=== PATIENT | female | born 1935 | race Caucasian/White ===

== ENCOUNTER 2018-07-03 10:40 | Emergency (ER) | payer MEDICARE ==
[2018-07-03 11:45] LABS: #Eosinphils 0.1 thou/uL (0.0-0.7); #Lymphocytes 0.8 thou/uL (1.20-3.40); #Monocytes 0.6 thou/uL (0.11-0.59); #Neutrophils 3.6 thou/uL (1.40-6.50); %Basophils 0.5 % (0.0-1.0); %Eosinophils 1.5 % (0.0-10.0); %Lymphocytes 15.9 % (21.0-51.0); %Monocytes 11.6 % (0.0-10.0); %Neutrophils 70.5 % (42.0-75.0); Hemoglobin 14.6 g/dL (12.0-16.0); Mean Corpuscular Hemoglobin 30.2 pg (27.0-31.0); Mean Corpuscular Volume 88.8 fL (78.0-98.0); Mean Platelet Volume 7.8 fL (7.4-10.4); Platelet Count 244 thou/uL (130-400); RBC Distribution Width 12.9 % (11.5-14.5); Red Blood Cell (RBC) Count 4.85 mill/uL (4.20-5.40); White Blood Cell (WBC) Count 5.1 thou/uL (4.8-10.8)
--- NOTE | 2018-07-03 11:51 | CT ---
CT HEAD WITHOUT CONTRAST: Date: 07/03/18 COMPARISON: 11/19/15. HISTORY: Dementia and altered mental status. TECHNIQUE: Axial CT imaging at 5 mm intervals from vertex through skull base without contrast. FINDINGS: Imaged paranasal sinuses and mastoid air cells are well aerated. There is no displaced calvarial frac ture. There is atherosclerotic calcification at the cavernous carotid arteries. No intracranial hemorrhage, midline shift, or mass effect. There is stable mild periventricular hypodensity suggesting small vessel disease. IMPRESSION: Stable head CT. No acute findings. POS: [facility]
[2018-07-03 12:17] LABS: ALT (SGPT) 16 U/L (8-55); Alkaline Phosphatase 73 U/L (40-150); BUN (Urea Nitrogen) 11 mg/dL (9.8-20.1); Bilirubin, Total 0.7 mg/dL (0.2-1.2); Calc. Creatinine Clearance 0 mL/min (70-130); Carbon Dioxide 27 mmol/L (23-31); Chloride 99 mmol/L (98-107); Estimated GFR-MDRD 67; Glucose 100 mg/dL (83-110); Sodium 135 mmol/L (136-145)
[2018-07-03 12:30] LABS: AST (SGOT) 21 U/L (5-34); Globulin 2.6 g/dL (2.4-3.5); Magnesium 1.9 mg/dL (1.6-2.6); Potassium 3.2 mmol/L (3.5-5.1); Protein, Total 6.6 g/dL (6.0-8.3)
[2018-07-03 12:31] LABS: Anion Gap 12 mmol/L (10-20)
[2018-07-03 14:48] LABS: Bilirubin Negative (Negative); Blood, Urine Negative (Negative); Clarity CLEAR (Clear); Glucose, Urine (Dipstick) Negative (Negative); Leukocyte Trace (Negative); Nitrite Negative (Negative); Protein, Urine (Dipstick) Negative (Neg-Trace); Specific Gravity, Urine 1.012 (1.002-1.036)
[2018-07-03 14:49] LABS: Bacteria/HPF Rare-Few HPF (None Seen); Hyaline Casts/LPF 0-3 HYALINE CAST LPF (0-3 Hyaline); Pathc Cast-AUWi Flag 0.14 (0-2.49); RBC/HPF 0-3 HPF (0-3); Squamous Epithelial 0-3 HPF (0-3); WBC/HPF 0-3 HPF (0-3)
== END 2018-07-03 15:09 | disposition home or self-care (01) ==
LOC: ERS 10:40
DX: R41.81 Age-related cognitive decline (principal); I10 Essential (primary) hypertension; K21.9 Gastro-esophageal reflux disease without esophagitis
CPT/HCPCS: 36415; 51701; 70450; 71045; 80053; 81003; 81015; 83735; 84484; 85025; 93005; 96360; A4353

== ENCOUNTER 2018-07-16 19:21 | Emergency (ER) | payer MEDICARE ==
[2018-07-16 19:54] LABS: Bilirubin Negative (Negative); Blood, Urine Negative (Negative); Clarity CLEAR (Clear); Glucose, Urine (Dipstick) Negative (Negative); Leukocyte Small (Negative); Nitrite Negative (Negative); Protein, Urine (Dipstick) Negative (Neg-Trace); Specific Gravity, Urine 1.018 (1.002-1.036); pH, Urine 6.5 (5.0-9.0)
[2018-07-16 19:57] LABS: Bacteria/HPF None Seen HPF (None Seen); Hyaline Casts/LPF 0-3 HYALINE CAST LPF (0-3 Hyaline); Pathc Cast-AUWi Flag 0.29 (0-2.49); RBC/HPF 0-3 HPF (0-3); Squamous Epithelial 0-3 HPF (0-3); WBC/HPF 0-3 HPF (0-3)
[2018-07-16 20:14] LABS: #Basophils 0.1 thou/uL (0.0-0.2); #Eosinphils 0.1 thou/uL (0.0-0.7); #Lymphocytes 0.7 thou/uL (1.20-3.40); #Monocytes 0.6 thou/uL (0.11-0.59); #Neutrophils 4.1 thou/uL (1.40-6.50); %Basophils 0.9 % (0.0-1.0); %Lymphocytes 13.4 % (21.0-51.0); %Monocytes 10.4 % (0.0-10.0); %Neutrophils 74.3 % (42.0-75.0); Hemoglobin 13.9 g/dL (12.0-16.0); Mean Corpuscular HGB CONC 34.8 g/dL (32.0-36.0); Mean Corpuscular Hemoglobin 30.8 pg (27.0-31.0); Mean Corpuscular Volume 88.6 fL (78.0-98.0); Mean Platelet Volume 6.8 fL (7.4-10.4); Platelet Count 226 thou/uL (130-400); RBC Distribution Width 12.3 % (11.5-14.5); Red Blood Cell (RBC) Count 4.51 mill/uL (4.20-5.40); White Blood Cell (WBC) Count 5.5 thou/uL (4.8-10.8)
[2018-07-16 20:35] LABS: ALT (SGPT) 14 U/L (8-55); AST (SGOT) 17 U/L (5-34); Albumin 3.8 g/dL (3.4-4.8); Alkaline Phosphatase 59 U/L (40-150); Anion Gap 14 mmol/L (10-20); BUN (Urea Nitrogen) 13 mg/dL (9.8-20.1); Bilirubin, Total 0.8 mg/dL (0.2-1.2); Calc. Creatinine Clearance 0 mL/min (70-130); Calcium 9.9 mg/dL (7.8-10.44); Carbon Dioxide 24 mmol/L (23-31); Chloride 102 mmol/L (98-107); Estimated GFR-MDRD 73; Globulin 2.8 g/dL (2.4-3.5); Glucose 104 mg/dL (83-110); Protein, Total 6.6 g/dL (6.0-8.3); Sodium 137 mmol/L (136-145)
[2018-07-16 20:42] LABS: Potassium 2.7 mmol/L (3.5-5.1)
[2018-07-16] MEDS ORDERED: Pot Chloride/Pot Bicarb/Cit Ac 25 mEq Effervescent Tablet ONE (20:50)
[2018-07-16] MEDS ORDERED: Potassium Bicarbonate/Cit Ac 25 MEQ TAB PO SCH (21:00)
== END 2018-07-16 21:44 | disposition home or self-care (01) ==
LOC: ERS 19:21
DX: F03.90 Unspecified dementia, unspecified severity, without behavioral disturbance, psychotic disturbance, mood disturbance, and anxiety (principal); E87.6 Hypokalemia; I10 Essential (primary) hypertension; K21.9 Gastro-esophageal reflux disease without esophagitis
CPT/HCPCS: 36415; 51701; 80053; 81003; 81015; 85025; 87086; A4353

== ENCOUNTER 2018-07-24 17:07 | Emergency (ER) | payer MEDICARE ==
--- NOTE | 2018-07-24 18:03 | CT ---
CT OF THE BRAIN WITHOUT CONTRAST: Date: 07/24/18 COMPARISON: 07/03/18. HISTORY: Dementia. Trauma. Patient hit her head on an entertainment center, with headache. TECHNIQUE: Multiple contiguous axial images were obtained in a CT of the brain without contrast. FINDINGS: There are scattered hypodensities in the subcortical and periventricular white matter, likely seconda ry to small vessel ischemic disease. No large confluent infarction is seen. There is no evidence of h ydrocephalus, intracranial hemorrhage, or extra-axial fluid collection. The calvarium and overlying soft tissues are unremarkable. The visualized paranasal sinuses and masto id air cells are well aerated. IMPRESSION: No evidence of acute intracranial abnormality. POS: [facility]
--- NOTE | 2018-07-24 18:07 | RAD ---
4 VIEWS LEFT KNEE: Date: 07/24/18 COMPARISON: None. HISTORY: Left knee pain after tripping and falling. FINDINGS: Four views of the left knee show a nondisplaced fracture of the patella. Overlying prepatellar soft t issue swelling is seen. No other fractures are seen. No knee effusion is seen. IMPRESSION: Nondisplaced patellar fracture. POS: [facility]
== END 2018-07-24 18:51 | disposition home or self-care (01) ==
LOC: ERS 17:07
DX: S82.035A Nondisplaced transverse fracture of left patella, initial encounter for closed fracture (principal); I10 Essential (primary) hypertension; K21.9 Gastro-esophageal reflux disease without esophagitis; F03.90 Unspecified dementia, unspecified severity, without behavioral disturbance, psychotic disturbance, mood disturbance, and anxiety; Z79.899 Other long term (current) drug therapy; W01.10XA Fall on same level from slipping, tripping and stumbling with subsequent striking against unspecified object, initial encounter
CPT/HCPCS: 70450; 93005

== ENCOUNTER 2019-02-08 10:48 | Observation (INO) | payer MEDICARE ==
[2019-02-08 11:26] LABS: #Eosinphils 0.1 thou/uL (0.0-0.7); #Lymphocytes 0.8 thou/uL (1.20-3.40); #Monocytes 0.5 thou/uL (0.11-0.59); #Neutrophils 4.1 thou/uL (1.40-6.50); %Basophils 0.7 % (0.0-1.0); %Eosinophils 1.8 % (0.0-10.0); %Lymphocytes 14.2 % (21.0-51.0); %Monocytes 8.8 % (0.0-10.0); %Neutrophils 74.5 % (42.0-75.0); Mean Corpuscular Hemoglobin 30.6 pg (27.0-31.0); Mean Corpuscular Volume 92.8 fL (78.0-98.0); Mean Platelet Volume 7.1 fL (7.4-10.4); Platelet Count 177 thou/uL (130-400); Red Blood Cell (RBC) Count 4.57 mill/uL (4.20-5.40); White Blood Cell (WBC) Count 5.5 thou/uL (4.8-10.8)
[2019-02-08 11:47] LABS: ALT (SGPT) 12 U/L (8-55); AST (SGOT) 28 U/L (5-34); Alkaline Phosphatase 76 U/L (40-150); Anion Gap 13 mmol/L (10-20); BUN (Urea Nitrogen) 19 mg/dL (9.8-20.1); Bilirubin, Total 0.6 mg/dL (0.2-1.2); Calc. Creatinine Clearance 0 mL/min (70-130); Calcium 9.5 mg/dL (7.8-10.44); Carbon Dioxide 25 mmol/L (23-31); Chloride 104 mmol/L (98-107); Estimated GFR-MDRD 78; Globulin 2.4 g/dL (2.4-3.5); Glucose 89 mg/dL (83-110); Potassium 4.1 mmol/L (3.5-5.1); Protein, Total 6.4 g/dL (6.0-8.3); Sodium 138 mmol/L (136-145)
[2019-02-08 12:14] LABS: Bilirubin Negative (Negative); Blood, Urine Negative (Negative); Glucose, Urine (Dipstick) Negative (Negative); Leukocyte Negative (Negative); Nitrite Negative (Negative); Protein, Urine (Dipstick) Negative (Neg-Trace)
[2019-02-08 12:15] LABS: Clarity Clear (Clear)
--- NOTE | 2019-02-08 13:06 | CT ---
ABDOMEN AND PELVIC CT SCAN WITHOUT IV CONTRAST: Date: 02/08/19 HISTORY: Intermittent abdominal pain. FINDINGS: No significant acute process in the visualized lungs. Motion artifact, in particular the upper abdome n. Visualized liver is unremarkable. Status post cholecystectomy. No common duct dilatation. Visualiz ed pancreas, spleen, and adrenal glands are unremarkable. Minimal dilatation of the left upper renal collecting system without a definitive obstructing calculus. Colonic diverticulosis without diverticu litis. No abscess, adenopathy, or significant abnormal fluid collection within the abdomen or pelvis. Unremarkable visualized uterus and adnexal regions. No CT evidence for acute appendicitis. IMPRESSION: Nonspecific minimal dilatation of the left upper renal collecting system and upper ureter without a d efinitive obstructing calculus. Status post cholecystectomy. Colonic diverticulosis without acute div erticulitis. Lumbar spine scoliosis and extensive spondylosis. Bilateral hip osteoarthrosis. POS: [facility]
--- NOTE | 2019-02-08 13:08 | CT ---
CT Brain WO Con: 02/08/2019 12:37 PM CLINICAL HISTORY: Weakness, emergency exam. COMPARISON: None. FINDINGS: Hemorrhage: None. Ventricular system: Normal in size and morphology for the patient's age. Cerebral parenchyma: Microvascular ischemic disease Midline shift: None. Mass: No mass effect. Calvarium: Normal. Visualized Paranasal sinuses: Clear. IMPRESSION: No acute intracranial abnormalities.
[2019-02-08 18:34] VITALS: BMI 22.1
--- NOTE | 2019-02-09 01:20 | HP ---
CHIEF COMPLAINT: Syncopal episode. HISTORY OF PRESENT ILLNESS: Ms. Nieto is an 83-year-old female with past medical history of severe dementia, hypertension, has passed out at the shelter. The patient does not remember anything. She feels she was going in a wheelchair and then she fell to the floor. Does not remember what exactly happened after that. With her severe dementia, I am not able to get proper history from the patient. According to the nursing room staff, the patient just passed out for a few minutes and when she woke up, she was very lethargic, not responding well. Her vital signs stable. In view of this episode, she was sent to the hospital. According to the nurse, she did not complain of anything before she passed out. No chest pain or shortness of breath. In the ER, the patient was evaluated. The patient is alert and awake, but not oriented. Hemodynamically stable. CAT scan of the brain was done, which was unremarkable. The patient did complain of some abdominal pain. Abdominal CAT scan was done, which was negative. The patient is admitted for further evaluation on syncopal episode. PAST MEDICAL HISTORY: 1. Severe dementia. 2. Hard of hearing. 3. Hypertension. 4. History of vertigo. 5. Meniere disease. 6. Gastroesophageal reflux disease. PAST SURGICAL HISTORY: 1. Status post appendectomy. 2. Status post cholecystectomy. CURRENT MEDICATIONS: The patient is on, 1. Meclizine 25 mg daily p.r.n. 2. Hydrochlorothiazide 25 mg daily. 3. Nexium 40 mg daily. 4. Zofran p.r.n. ALLERGIES: IODINE AND SULFA. FAMILY HISTORY: Nothing contributory. SOCIAL HISTORY: The patient lives at [facility]. No history of smoking. No history of alcohol or drug abuse. REVIEW OF SYSTEMS: Unable to obtain because of mental status of the patient and because she has severe dementia, unable to give proper responses. PHYSICAL EXAMINATION: GENERAL: The patient is alert, awake, not oriented. VITAL SIGNS: Temperature 98, pulse 88, respirations 28, blood pressure 140/80. HEENT: Head is normocephalic and atraumatic. Pupils are equal and reactive. Nasopharynx is pale and dry. Hard and soft. No lesions. SKIN: Turgor decreased. NECK: Supple. No JVD. LUNGS: Bilateral air entry with no rales and no rhonchi. HEART: S1 and S2 regular. ABDOMEN: Soft. No distention. No tenderness. Normal bowel sounds present. RECTAL: Deferred. CENTRAL NERVOUS SYSTEM: The patient is alert, awake, not well-oriented. Motor system, power 4/5 in all extremities. Deep tendon reflex 2+ bilaterally. Plantar downgoing. Sensory intact. LABORATORY DATA: CBC shows WBC 5.5, hemoglobin 14, hematocrit 42, platelets 177. Metabolic panel; sodium 138, potassium 4, chloride 104, CO2 of 25, BUN 19, creatinine 0.7, glucose 89. Troponin 0.010. Urinalysis negative. CT scan of the brain unremarkable. CT scan of the abdomen and pelvis shows chronic diverticulosis without acute diverticulitis. Also shows lumbar spine stenosis with extensive spondylosis and hip arthrosis. ASSESSMENT: 1. Syncopal episode. Rule out cardiac arrhythmia, rule out myocardial infarction. 2. Hypertension. 3. Severe dementia. 4. Hard of hearing. 5. Gastroesophageal reflux disease. PLAN: 1. Vital signs q.4 hours. 2. Activity as tolerated. 3. Allergies to sulfa and Iodine. 4. Hep-Lock. 5. Continue shelter medications. 6. Troponin I q.6 hours x2. 7. Echocardiogram. 8. Carotid Doppler study. Job ID: [id number]
[2019-02-09] MEDS ORDERED: Citalopram 10 MG TAB PO SCH (09:00)
[2019-02-09] MEDS ORDERED: Hydrochlorothiazide 25 MG TAB PO SCH (09:00)
[2019-02-09] MEDS ORDERED: Potassium Chloride 20 MEQ TAB PO SCH (09:00)
[2019-02-09] MEDS ORDERED: Ondansetron ODT 4 MG TAB PO PRN (09:41)
[2019-02-09] MEDS ORDERED: Meclizine HCl 25 MG TAB PO PRN (09:42)
[2019-02-09] MEDS ORDERED: Acetaminophen ER (8hr) 650 MG TAB PO PRN (09:43)
[2019-02-09 10:49] VITALS: BP 130/63; TEMP 98.3
[2019-02-09] MEDS ORDERED: Melatonin 3 MG TAB PO PRN (11:45)
--- NOTE | 2019-02-10 13:24 | EKG ---
Test Reason : SYNCOPE Blood Pressure : / mmHG Vent. Rate : 066 BPM Atrial Rate : 066 BPM P-R Int : 192 ms QRS Dur : 086 ms QT Int : 394 ms P-R-T Axes : 042 018 028 degrees QTc Int : 413 ms Normal sinus rhythm Normal ECG No ST elevation/HI Confirmed by TERESO Florentino, DIONY ([id number]), rewrite editor MOISE BHANDARI ([id number]) on 02/10/2019 1:24:00 PM Referred By: TERESO Confirmed By:DIONY RIDER M.D.
--- NOTE | 2019-02-12 14:29 | DIS ---
DATE OF ADMISSION: 02/08/2019 DATE OF DISCHARGE: 02/09/2019 ADMITTING DIAGNOSES: 1. Syncopal episode, rule out myocardial infarction, rule out cardiac arrhythmia. 2. Hypertension. 3. Severe dementia. 4. Hard of hearing. 5. djd FINAL DIAGNOSES: 1. Syncopal episode. No evidence for cardiac arrhythmia. No history of myocardial infarction. 2. Severe dementia. 3. Hypertension. 4. hard of hearing. HOSPITAL COURSE: Ms. Nieto is an 83-year-old female admitted because of syncopal episode in the detention. The patient felt dizzy and passed out few seconds. did not have any chest pain or shortness of breath. She is admitted to rule out myocardial infarction. Serial cardiac enzymes were done. The second troponin I less than 0.010, third one was less than 0.010. I ordered a carotid Doppler and echocardiogram, but the patient and family refused to go for these tests. Patient was feeling better. No more dizziness. No chest pain. No shortness of breath. In view of that, the patient was discharged to detention. At the time of discharge, she was stable. Her vital signs stable. Lungs clear to auscultation. Abdomen is soft, nontender, bowel sounds present. DISCHARGE MEDICATIONS: 1. Hydrochlorothiazide 12.5 daily. 2. Zofran p.r.n. 3. Meclizine p.r.n. 4. KCl 20 mEq daily. 5. Celexa 10 mg daily. 6. Tylenol p.r.n. 7. Melatonin p.r.n. FOLLOWUP: The patient will be followed up in detention. Job ID: [id number] [facility]
== END 2019-02-09 14:26 ==
LOC: ERS 10:48 → ERHOLD 14:30 → 2SW 18:21
PROVIDERS: ADMIT Internal Medicine; ATTEND Internal Medicine
DX: R55 Syncope and collapse (principal); I10 Essential (primary) hypertension; F03.90 Unspecified dementia, unspecified severity, without behavioral disturbance, psychotic disturbance, mood disturbance, and anxiety; H91.90 Unspecified hearing loss, unspecified ear; M16.0 Bilateral primary osteoarthritis of hip; M48.061 Spinal stenosis, lumbar region without neurogenic claudication; M47.816 Spondylosis without myelopathy or radiculopathy, lumbar region; K21.9 Gastro-esophageal reflux disease without esophagitis; K57.30 Diverticulosis of large intestine without perforation or abscess without bleeding; H81.09 Meniere's disease, unspecified ear; Z66 Do not resuscitate; Z91.041 Radiographic dye allergy status; Z88.2 Allergy status to sulfonamides; Z88.1 Allergy status to other antibiotic agents; Z79.899 Other long term (current) drug therapy
CPT/HCPCS: 51701; 70450; 74176; 80053; 81003; 82962; 84484 ×2; 85025; 87086; 93005; 99285; G0378 ×2; 36415; 36416; A4353

== ENCOUNTER 2021-07-18 16:30 | Emergency (ER) | payer MEDICAID, MEDICARE ==
[2021-07-18] MEDS ORDERED: hydrALAZINE 20 MG/ML VIAL ONE (19:00)
[2021-07-18 19:34] LABS: #Eosinphils 0.1 thou/uL (0.0-0.7); #Lymphocytes 0.9 thou/uL (1.20-3.40); #Monocytes 0.4 thou/uL (0.11-0.59); #Neutrophils 4.5 thou/uL (1.40-6.50); %Basophils 0.3 % (0.0-1.0); %Eosinophils 1.7 % (0.0-10.0); Hemoglobin 13.4 g/dL (12.0-16.0); Mean Corpuscular HGB CONC 33.3 g/dL (32.0-36.0); Mean Corpuscular Volume 93.1 fL (78.0-98.0); Mean Platelet Volume 7.2 fL (7.4-10.4); Platelet Count 198 thou/uL (130-400); RBC Distribution Width 12.4 % (11.5-14.5); Red Blood Cell (RBC) Count 4.33 mill/uL (4.20-5.40); White Blood Cell (WBC) Count 5.9 thou/uL (4.8-10.8)
[2021-07-18 19:51] LABS: INR-International Normal Ratio 1.2; PTT 31.5 sec (22.9-36.1); Prothrombin Time 15.3 sec (12.0-14.7)
[2021-07-18 19:53] LABS: ALT (SGPT) 11 U/L (8-55); AST (SGOT) 22 U/L (5-34); Albumin 3.5 g/dL (3.4-4.8); Alkaline Phosphatase 74 U/L (40-110); Anion Gap 15 mmol/L (10-20); BUN (Urea Nitrogen) 13 mg/dL (9.8-20.1); Bilirubin, Total 0.5 mg/dL (0.2-1.2); Calc. Creatinine Clearance 0 mL/min (70-130); Calcium 9.3 mg/dL (7.8-10.44); Carbon Dioxide 18 mmol/L (23-31); Chloride 108 mmol/L (98-107); Globulin 3.1 g/dL (2.4-3.5); Glucose 99 mg/dL (83-110); Potassium 3.8 mmol/L (3.5-5.1); Protein, Total 6.6 g/dL (5.8-8.1); Sodium 137 mmol/L (136-145)
[2021-07-18] MEDS ORDERED: Lidocaine 1% (PF) 30 ML VIAL ONE (20:22)
[2021-07-19 00:25] LABS: SARS-CoV-2 NAA Rapid Test Not Detected (NotDetected)
[2021-07-19] MEDS ORDERED: Boostrix 0.5 ML (Tdap) VIAL ONE (02:17)
== END 2021-07-19 02:55 ==
LOC: ERS 16:30
DX: S06.5X9A Traumatic subdural hemorrhage with loss of consciousness of unspecified duration, initial encounter (principal); S01.81XA Laceration without foreign body of other part of head, initial encounter; W19.XXXA Unspecified fall, initial encounter; Z20.822 Contact with and (suspected) exposure to COVID-19; I10 Essential (primary) hypertension; E78.5 Hyperlipidemia, unspecified
CPT/HCPCS: 12011; 70450; 72125; 80053; 85025; 85610; 85730; 90471; 90715; 93005; 96374; J0360; J2001; U0002

== ENCOUNTER 2021-08-03 10:51 | Outpatient (CLI) | payer MEDICAID | END 2021-08-03 10:52 | disposition home or self-care (01) | LOC: CT 10:51 | PROVIDERS: ATTEND Surgery | DX: I62.00 Nontraumatic subdural hemorrhage, unspecified (principal); R22.0 Localized swelling, mass and lump, head | CPT/HCPCS: 70450 ==

== ENCOUNTER 2021-08-24 15:47 | Emergency (ER) | payer BC, MEDICAID ==
[2021-08-24 17:14] LABS: Hemoglobin 13.2 g/dL (12.0-16.0); Mean Corpuscular HGB CONC 32.6 g/dL (32.0-36.0); Mean Corpuscular Hemoglobin 30.2 pg (27.0-31.0); Mean Corpuscular Volume 92.7 fL (78.0-98.0); Mean Platelet Volume 6.6 fL (7.4-10.4); Platelet Count 321 thou/uL (130-400); Red Blood Cell (RBC) Count 4.37 mill/uL (4.20-5.40); White Blood Cell (WBC) Count 7.7 thou/uL (4.8-10.8)
[2021-08-24 17:30] LABS: ALT (SGPT) 15 U/L (8-55); AST (SGOT) 17 U/L (5-34); Albumin 3.3 g/dL (3.4-4.8); Alkaline Phosphatase 78 U/L (40-110); Anion Gap 12 mmol/L (10-20); BUN (Urea Nitrogen) 15 mg/dL (9.8-20.1); Bilirubin, Total 0.8 mg/dL (0.2-1.2); Calc. Creatinine Clearance 0 mL/min (70-130); Calcium 9.4 mg/dL (7.8-10.44); Carbon Dioxide 26 mmol/L (23-31); Chloride 102 mmol/L (98-107); Globulin 3.6 g/dL (2.4-3.5); Glucose 114 mg/dL (83-110); Potassium 3.9 mmol/L (3.5-5.1); Protein, Total 6.9 g/dL (5.8-8.1); Sodium 136 mmol/L (136-145)
[2021-08-24 17:39] LABS: Band 4 % (5-11); Eosinophils 4 % (0-10); Lymphocytes 5 % (21-51); MDiff Complete? YES; Monocytes 9 % (0-10); Myelocyte 1 % (0-0); Neutrophil 75 % (42-75); Platelet Morphology Comment Appears Adequate; RBC Morphology Normal
[2021-08-24 17:55] LABS: INR-International Normal Ratio 1.2; Prothrombin Time 15.8 sec (12.0-14.7)
[2021-08-24 17:56] LABS: PTT 41.7 sec (22.9-36.1)
[2021-08-25 16:51] LABS: SARS-CoV-2 PCR by NAA Not Detected (NotDetected)
== END 2021-08-24 21:01 ==
LOC: ERS 15:47
DX: S72.001A Fracture of unspecified part of neck of right femur, initial encounter for closed fracture (principal); F03.90 Unspecified dementia, unspecified severity, without behavioral disturbance, psychotic disturbance, mood disturbance, and anxiety; I10 Essential (primary) hypertension; E78.5 Hyperlipidemia, unspecified; Z79.899 Other long term (current) drug therapy
CPT/HCPCS: 36415; 71045; 72170; 80053; 84484; 85025; 85610; 85730; 86850; 86900; 86901; 93005; 94760; U0003; U0005